=== PATIENT | female | born 1935 | race Caucasian/White ===

== ENCOUNTER → 2016-08-05 | Outpatient (CLI) | payer BC, OTHER ==
[~2016-08-05] MED LIST: ASPI400T11 PEG; ATOR10TA82 PO; CEPH-571 PO; CETI10TA84 PO; CHOL100010 PO; CHOLTAB5 PO; CRAN1TAB9 PO; LANS15CA6 PO; LEVO100T PO; LEVO75TA5 PO; LIFI5DRO OP; MELO15TA4 PO; METH-1305 PO; MULT-190 PO; MULT-506 PO; OMEGCAP2 PO; PYRI100T4 PO; [UNRECOGNIZED DRUG - OTHER] TOP
[2016-08-05 09:33] LABS: BASO % 0.3 %; BASO ABS # 0.02 K/uL (0-0.2); COMPLETE YES; EOS % 2.3 %; HEMATOCRIT 42.1 % (37-47); LYMPH % 25.5 %; LYMPH ABS # 1.79 K/uL (1.2-3.4); MEAN CORPUSCULAR HEMOGLOBIN 32.6 pg (25-34); MEAN CORPUSCULAR HGB CONC 34.7 g/dl (32-36); MEAN PLATELET VOLUME 9.4 fL (7.4-10.4); MONO % 6.5 %; NEUT % 65.4 %; PLATELET COUNT 232 K/uL (130-400); RED BLOOD COUNT 4.48 M/uL (4.2-5.4); WHITE BLOOD COUNT 7.03 K/uL (4.8-10.8)
[2016-08-05 10:03] LABS: ESTIMATED AVERAGE GLUCOSE 126 mg/dl; HA1C FLAG Normal (Normal)
[2016-08-05 10:04] LABS: ALT/SGPT 32 U/L (12-78); BLOOD UREA NITROGEN 12 mg/dl (7-18); BUN/CREATININE RATIO 14.4 (10-20); CALCIUM 9.2 mg/dl (8.5-10.1); CARBON DIOXIDE 32 mmol/L (21-32); CHLORIDE 101 mmol/L (98-107); CHOLESTEROL 201 mg/dl (0-200); GLUCOSE 94 mg/dl (70-99); POTASSIUM 3.9 mmol/L (3.5-5.1); SODIUM 138 mmol/L (136-145); URIC ACID 4.5 mg/dl (2.6-7.2)
[2016-08-05 10:12] LABS: ALB/GLOB RATIO 1.3 (0.9-2); ALKALINE PHOSPHATASE 79 U/L (45-117); AST/SGOT 20 U/L (15-37); CHOLESTEROL/HDL RATIO 2.5; HDL CHOLESTEROL 80 mg/dl; LDL CHOLESTEROL CALCULATED 95 mg/dl; PHOSPHORUS 3.4 mg/dl (2.5-4.9); TRIGLYCERIDES 130 mg/dl (0-150); VERY LOW DENSITY LIPOPROT CALC 26 mg/dl
[2016-08-05 10:15] LABS: URINE APPEARANCE CLEAR (CLEAR); URINE BILIRUBIN NEG (NEG); URINE COLOR YELLOW; URINE NITRITE NEG (NEG); URINE SPECIFIC GRAVITY 1.016 (1.000-1.030); UROBILINOGEN NEG (NEG)
[2016-08-05 10:52] LABS: MANUAL MICROSCOPIC REQUIRED? NO; REVIEW REQ? NO
[2016-08-06 10:34] LABS: C-REACTIVE PROT HIGHSEN 0.3 MG/L
--- NOTE | 2016-08-12 07:04 | CODING QUERY MEDICAL NECESSITY ---
CQSUPPORTING DIAGNOSIS NEEDED A supporting diagnosis is required for the test/procedure performed on this patient in order for us to be reimbursed by the patient's insurance. Please provide a supporting diagnosis for the following test/procedure listed below next to the test name along with your signature. *If there is no additional diagnosis for this patient that would support the following test/procedure please document that below next to the test/procedure. Test(s)/Procedure(s) that require a supporting diagnosis: DOS 08/05/16 C-REACTIVE PROTEIN HIGH SENSITIVITY TESTING Provider Signature: Date: Thank you Merle Quintero Health Information Management Once completed, please kindly fax back to [phone] For questions please call [phone]
== END | disposition home or self-care (01) ==
LOC: C.LAB 08:45
PROVIDERS: ATTEND Family Medicine
DX: R73.09 Other abnormal glucose (principal); E55.9 Vitamin D deficiency, unspecified; D51.9 Vitamin B12 deficiency anemia, unspecified; N39.0 Urinary tract infection, site not specified; E78.00 Pure hypercholesterolemia, unspecified

== ENCOUNTER → 2016-08-12 | Outpatient (CLI) | payer BC, OTHER | END | disposition home or self-care (01) | LOC: C.PATHSPEC 10:24 | PROVIDERS: ATTEND Urology | DX: N30.01 Acute cystitis with hematuria (principal) ==

== ENCOUNTER 2016-10-05 15:09 | Emergency (ER) | payer BC, OTHER ==
[~2016-10-05] VITALS: Ht 165.1 cm; Wt 67.7 kg
[~2016-10-05 15:09] MED LIST changes: -CEPH-571 PO; -CETI10TA84 PO; -CHOLTAB5 PO; -LANS15CA6 PO; -LEVO100T PO; -LIFI5DRO OP; -METH-1305 PO; -MULT-190 PO
[2016-10-05 15:12] VITALS: TEMP 36.4; Ht 165.1 cm; Wt 67.7 kg
[2016-10-05] MEDS ORDERED: METH-1305 PO (15:24)
[2016-10-05] MEDS ORDERED: CETI10TA84 PO (15:24)
[2016-10-05] MEDS ORDERED: MULT-190 PO (15:24)
[2016-10-05] MEDS ORDERED: LIFI5DRO OP (15:24)
[2016-10-05] MEDS ORDERED: LEVO100T PO (15:24)
[2016-10-05] MEDS ORDERED: LANS15CA6 PO (15:24)
[2016-10-05] MEDS ORDERED: CHOLTAB5 PO (15:24)
--- NOTE | 2016-10-05 15:51 | DIAGNOSTIC IMAGING REPORT ---
RIGHT FOOT MIN 3 VIEWS ROUTINE CLINICAL HISTORY: Right foot pain COMPARISON: None. DISCUSSION: No acute fractures are visualized. There is a hallux valgus deformity. There are mild degenerative changes at the level of the first metatarsal phalangeal joint. There is no erosive disease. IMPRESSION: 1. No acute fractures 2. Degenerative changes at the level of the first metatarsal phalangeal joint. Hallux valgus deformity. Electronically signed by: Alexi Hamilton M.D. 10/05/2016 3:50 PM Dictated Date/Time: 10/05/2016 3:49 PM
--- NOTE | 2016-10-05 15:54 | EMERGENCY ROOM VISIT NOTE ---
ED Visit Note First contact with patient: 15:15 CHIEF COMPLAINT: Right foot pain HISTORY of present illness: This 81-year-old female presents the ER with chief complaint of increasing pain on the bottom of her right foot. She states that the base of her toes. 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 She states that it feels like there is "a bone sticking out". REVIEW OF SYSTEMS: 6 system review was performed and was negative unless stated otherwise in history of present illness. PMH: The patient is healthy; recurrent UTIs SOCIAL HISTORY: Patient lives alone. The patient denies any tobacco use but admits to occasional alcohol use. PHYSICAL EXAM: Vital Signs: Were reviewed blood pressure was 176/89 Reviewed Nurse's notes. GENERAL: 81-year-old white female appears younger than stated age. MENTAL Status: Alert, oriented and choerent, not in acute distress. RIGHT Foot: No gross bony deformity noted. No erythema or edema noted. The patient is tender to palpation over the plantar surface of the distal metatarsal region. Remainder of foot is nontender. Patient is able to move her toes without difficulty. Sensation is intact. The patient states she has been appointment with a golf coach at the end of this month. EMERGENCY DEPARTMENT COURSE: The patient was evaluated. The patient was informed that her blood pressure is 176/89 and that it is recommended that she gets a blood pressure check at her family physician in 2 days. The patient verbalized understanding. X-ray of the right foot was ordered and interpreted by the radiologist. DIAGNOSTICS:LEFT RIBS UNILATERAL WITH PA CHEST CLINICAL HISTORY: Left rib injury with pain. COMPARISON STUDY: None. FINDINGS: No pleural effusions. No pneumothorax. The lungs are hyperexpanded with apical predominant emphysematous changes. The heart is normal in size. Biapical reticulonodular thickening is likely chronic. Slightly displaced left lateral fourth through seventh rib fractures. IMPRESSION: Left lateral fourth through seventh rib fractures. No pneumothorax. Electronically signed by: Mariusz Ch M.D. 10/05/2016 1:32 PM The patient was informed of the findings. The patient was independently evaluated by Dr. Sims who agrees with treatment plan. The patient was discharged home in stable condition. TREATMENT: Tylenol as needed for pain. Recommend an insert for your shoes for more cushioning. Keep scheduled appointment with your foot doctor at the end of this month. Follow-up with your family physician in 2 days for blood pressure recheck. DIAGNOSIS: Right foot pain Problem List Medical Problems: (1) Hypothyroidism Status: Chronic Current/Historical Medications Scheduled Atorvastatin (Lipitor), 10 MG PO DAILY Cetirizine (Zyrtec), 10 MG PO DAILY Cholecalciferol (D-1000), 1,000 UNIT PO DAILY Cranberry (Vaccinium Macrocarp (Cranberry), 300 MG PO DAILY Lansoprazole (Prevacid), 15 MG PO DAILY Levothyroxine Sodium (Synthroid), 100 MCG PO DAILY Lifitegrast (Xiidra), 2 DROPS OP BID Methenamine Hippurate (Methenamine Hippurate), 1 GM PO DAILY Multivitamin (Multivitamin), 1 TAB PO DAILY Ocuvite Preservision (Ocuvite Preservision), 1 TAB PO DAILY [place]-3 Fatty Acids (Fish Oil), 1,200 MG PO DAILY Pyridoxine Hcl (Vitamin B6 100 Mg), 100 MG PO DAILY Scheduled PRN Aspirin-Caffeine (Anacin 400-32 mg), 1 TAB PEG UD PRN for Pain Allergies Coded Allergies: Lactose Intolerance (GI) (Verified Allergy, Unknown, GI SYMPTOMS, 10/05/16) Meperidine (Verified Allergy, Unknown, unk, 10/05/16) Naproxen (Unverified Allergy, Unknown, HOT FLASHES, 10/05/16) Sulfa Antibiotics (Verified Allergy, Unknown, unk, 10/05/16) Vital Signs Date Time Temp Pulse Resp B/P (MAP) Pulse Ox O2 Delivery O2 Flow Rate FiO2 10/05/16 15:12 36.4 70 18 176/89 98 Room Air Departure Information Referrals No Doctor, Assigned (PCP) Patient Instructions [facility] [place]
--- NOTE | 2016-10-05 16:01 | EMERGENCY ROOM VISIT NOTE ---
ED Visit Note First contact with patient: 15:15 This Patient was discussed with the physician telecom assistant, ADRIANE Desir. The pertinent historical and physical exam findings were confirmed. I agree with the studies ordered and with the interpretations of these studies. I agree with the disposition and care plan.
[2016-10-05 16:07] VITALS: BP 161/81; PULSE 59; O2SAT 95
== END 2016-10-05 16:08 | disposition home or self-care (01) ==
LOC: C.EDB 15:11 → C.EDD 16:08
DX: M79.671 Pain in right foot (principal); E03.9 Hypothyroidism, unspecified; Z87.440 Personal history of urinary (tract) infections; Z79.899 Other long term (current) drug therapy

== ENCOUNTER → 2016-10-08 | Outpatient (CLI) | payer BC, OTHER ==
[~2016-10-08] MED LIST changes: +CEPH-571 PO; +CETI10TA84 PO; -CHOL100010 PO; +CHOLTAB5 PO; +LANS15CA6 PO; +LEVO100T PO; -LEVO75TA5 PO; +LIFI5DRO OP; -MELO15TA4 PO; +METH-1305 PO; +MULT-190 PO; -[UNRECOGNIZED DRUG - OTHER] TOP
[2016-10-08 10:25] LABS: THYROID STIMULATING HORMONE 0.824 uIu/ml (0.300-4.500)
== END | disposition home or self-care (01) ==
LOC: C.LAB 08:57
PROVIDERS: ATTEND Family Medicine
DX: E03.9 Hypothyroidism, unspecified (principal)

== ENCOUNTER → 2016-10-16 | Outpatient (CLI) | payer BC, OTHER ==
--- NOTE | 2016-10-16 12:33 | DIAGNOSTIC IMAGING REPORT ---
ULTRASOUND VENOUS DOPP LOWER EXT UNILAT CLINICAL HISTORY: Right lower leg swelling. Pain. COMPARISON STUDY: No previous studies for comparison. FINDINGS: Real-time and color flow Doppler imaging were performed. Flow was seen within the femoral, popliteal and calf veins with no intraluminal thrombus demonstrated. The saphenous vein is patent. IMPRESSION: No evidence of right lower extremity DVT. Electronically signed by: Alexi Hamilton M.D. 10/16/2016 12:32 PM Dictated Date/Time: 10/16/2016 12:32 PM
== END | disposition home or self-care (01) ==
LOC: C.ULTR 12:06
PROVIDERS: ATTEND Family Medicine
DX: M79.604 Pain in right leg (principal); M79.89 Other specified soft tissue disorders

== ENCOUNTER 2017-01-08 23:16 | Emergency (ER) | payer BC, OTHER ==
[~2017-01-08] VITALS: Ht 162.6 cm; Wt 65.7 kg
[~2017-01-08 23:16] MED LIST changes: -ATOR10TA82 PO; +ATOR10TA88 PO; -CEPH-571 PO; -METH-1305 PO; +METH1TAB5 PO
[2017-01-08 23:21] VITALS: Ht 162.6 cm; Wt 65.7 kg
--- NOTE | 2017-01-08 23:41 | EMERGENCY ROOM VISIT NOTE ---
History Report prepared by Ricardo: Annita Barker Under the Supervision of: Jed OrlandoO. First contact with patient: 23:26 Chief Complaint: URINARY SYMPTOMS Stated Complaint: UTI - BLOOD IN URINE Nursing Triage Summary: UTI symptoms since 5pm. took Azo, pyridium, cipro. History of Present Illness The patient is a 81 year old female who presents to the Emergency Room with complaints of urinary symptoms beginning today. The patient reports that she has UTI symptoms and that there was blood in her urine today. The patient states that she took Azo. She reports that she has had blood in her urine with previous UTI's. She also complains of lower abdominal pressure. Pt denies headache, change in vision, fevers, chest pain, shortness of breath, nausea, vomiting, diarrhea, and melena, no back pain. No prior hx of pyelonephritis, renal stone, or other renal disease. Source of History: patient Onset: today Position: other (global) Quality: other (urinary symptoms ) Associated Symptoms: + abdominal pain (lower abdominal pressure), + urinary symptoms (blood in urine), No fevers, No headache, No chest pain, No SOB, No nausea, No vomiting, No melena, No diarrhea Review of Systems See HPI for pertinent positives & negatives. A total of 10 systems reviewed and were otherwise negative. Past Medical & Surgical Medical Problems: (1) Hypothyroidism Family History Cancer Diabetes mellitus Heart disease Lung disease Social History Smoking Status: Never Smoker Alcohol Use: occasionally Drug Use: none Marital Status: Housing Status: lives with significant other Occupation Status: retired Current/Historical Medications Scheduled Atorvastatin (Lipitor), 10 MG PO DAILY Cephalexin (Keflex), 1 CAP PO BID Cetirizine (Zyrtec), 10 MG PO DAILY Cholecalciferol (D-1000), 1,000 UNIT PO DAILY Cranberry (Vaccinium Macrocarp (Cranberry), 300 MG PO DAILY Lansoprazole (Prevacid), 15 MG PO DAILY Levothyroxine Sodium (Synthroid), 100 MCG PO DAILY Lifitegrast (Xiidra), 2 DROPS OP BID Methenamine Hippurate (Methenamine Hippurate), 1 GM PO DAILY Multivitamin (Multivitamin), 1 TAB PO DAILY Ocuvite Preservision (Ocuvite Preservision), 1 TAB PO DAILY [place]-3 Fatty Acids (Fish Oil), 1,200 MG PO DAILY Pyridoxine Hcl (Vitamin B6 100 Mg), 100 MG PO DAILY Scheduled PRN Aspirin-Caffeine (Anacin 400-32 mg), 1 TAB PEG UD PRN for Pain Allergies Coded Allergies: Lactose Intolerance (GI) (Verified Allergy, Unknown, GI SYMPTOMS, 10/05/16) Meperidine (Verified Allergy, Unknown, unk, 10/05/16) Naproxen (Unverified Allergy, Unknown, HOT FLASHES, 10/05/16) Sulfa Antibiotics (Verified Allergy, Unknown, unk, 10/05/16) Physical Exam Vital Signs Date Time Temp Pulse Resp B/P (MAP) Pulse Ox O2 Delivery O2 Flow Rate FiO2 01/09/17 00:55 76 18 146/88 95 Room Air 01/08/17 23:21 36.3 78 20 95 Room Air Physical Exam GENERAL: alert, well appearing, well nourished, no distress, non-toxic EYE EXAM: normal conjunctiva, PERRL and EOM's grossly intact OROPHARYNX: no exudate, no erythema, lips, buccal mucosa, and tongue normal and mucous membranes are moist NECK: supple, no nuchal rigidity, no adenopathy, non-tender LUNGS: Clear to auscultation. Normal chest wall mechanics HEART: no murmurs, S1 normal and S2 normal ABDOMEN: abdomen soft, non-tender, normo-active bowel sounds, no masses, no rebound or guarding. BACK: Back is symmetrical on inspection and there is no deformity, no midline tenderness, no CVA tenderness. SKIN: no rashes and no bruising UPPER EXTREMITIES: upper extremities are grossly normal. LOWER EXTREMITIES: No pitting edema. NEURO EXAM: Normal sensorium, cranial nerves II-XII [grossly] intact, normal speech, no [gross] weakness of arms, no [gross] weakness of legs. [No drift. Finger to nose intact. Gross sensation intact.] Medical Decision & Procedures Laboratory Results Test 01/08/17 23:30 Urine Color ORANGE Urine Appearance SLIGHTLY CLOUDY (CLEAR) Urine pH (4.5-7.5) Urine Specific [place] 1.013 (1.000-1.030) Urine Protein POS (NEG) Urine Glucose (UA) (NEG) Urine Ketones (NEG) Urine Occult Blood (NEG) Urine Nitrite (NEG) Urine Bilirubin (NEG) Urine Urobilinogen (NEG) Urine Leukocyte Esterase (NEG) Urine RBC >30 /hpf (0-4) Urine WBC >30 /hpf (0-5) Urine Epithelial Cells 0-5 /lpf (0-5) Urine Bacteria NEG (NEG) Laboratory results per my review. Medications Administered Medications (Trade) Dose Ordered Sig/Cy Route Start Time Stop Time Status Last Admin Dose Admin Cephalexin Monohydrate (Keflex Cap) 500 mg NOW ONCE PO 01/09/17 00:30 01/09/17 00:31 DC 01/09/17 01:00 500 MG Phenazopyridine HCl (Phenazopyridine HCl 200MG Home Pack) 1 homepack UD ONCE PO 01/09/17 01:15 01/09/17 01:16 DC 01/09/17 01:00 1 HOMEPACK Phenazopyridine HCl (Pyridium Tab) 100 mg NOW STAT PO 01/09/17 01:01 01/09/17 01:02 DC 01/09/17 01:00 100 MG ED Course 2320: The patient was evaluated in room B5. A complete history and physical exam was performed. 0015: I checked on the patient and she is doing better. 0030: Ordered Cephalexin Monohydrate 500 mg PO. 0040: Upon reevaluation, the patient is feeling better. I discussed the findings and the treatment plan with the patient. She verbalizes agreement and understanding. She was discharged home. Medical Decision The patient is a 81 year old female who presents to the ED with complaints of urinary symptoms. Differentials include a UTI, kidney stone, pyelonephritis, and acute renal failure. Pt well appearing here, VS stable. Sx consistent with UTI, PE not suggestive of pyelonephritis, doubt bacteremia/sepsis, ARF, hx not consistent with stone. Reviewed prior cultures and allergies. Discussed f/u, culture sent, sx to watch /return for, she verbalized understanding and was agreeable with plan. Medication Reconcilliation Current Medication List: was personally reviewed by me Blood Pressure Screening Patient's blood pressure: Normal blood pressure Impression Primary Impression: UTI (urinary tract infection) Additional Impressions: Dysuria Hematuria Scribe Attestation The scribe's documentation has been prepared under my direction and personally reviewed by me in its entirety. I confirm that the note above accurately reflects all work, treatment, procedures, and medical decision making performed by me. Departure Information Dispostion Home / Self-Care Prescriptions Cephalexin (KEFLEX) 500 Mg Cap 1 CAP PO BID for 7 Days, #14 CAP Prov: Virginia Reyes, 01/09/17 Referrals Mp Block M.D. (PCP) Forms HOME CARE DOCUMENTATION FORM, IMPORTANT VISIT INFORMATION Patient Instructions My [facility] Additional Instructions Please take the antibiotics and drink plenty of water. If you have any worsening pain with urination, increased abdominal pain or back pain, develop fevers/chills, nausea/vomiting, dizziness, weakness, or you have any other new or concerning symptoms, please return to the emergency room. Problem Qualifiers Primary Impression: UTI (urinary tract infection) Urinary tract infection type: acute cystitis Hematuria presence: with hematuria Qualified Codes: N30.01 - Acute cystitis with hematuria Additional Impressions: Hematuria Hematuria type: gross Qualified Codes: R31.0 - Gross hematuria
[2017-01-08 23:55] LABS: MANUAL MICROSCOPIC REQUIRED? YES; REVIEW REQ? NO
[2017-01-08 23:56] LABS: SULFASALICYLIC ACID NEG (NEG); URINE APPEARANCE SLIGHTLY CLOUDY (CLEAR); URINE COLOR ORANGE; URINE SPECIFIC GRAVITY 1.013 (1.000-1.030)
[2017-01-09 00:02] LABS: URINE BACTERIA NEG (NEG); URINE RBC >30 /hpf (0-4); URINE WBC >30 /hpf (0-5)
[2017-01-09 00:03] LABS: ZZUR CULT IF INDIC CLEAN CATCH YES
[2017-01-09] MEDS ORDERED: CEPH-571 PO (00:22)
[2017-01-09] MEDS ORDERED: CEPHALEXIN MONOHYDRATE 250 MG CAP PO ONE (00:30)
[2017-01-09 00:55] VITALS: BP 146/88; PULSE 76; O2SAT 95
[2017-01-09] MEDS ORDERED: PHENAZOPYRIDINE HCL 100 MG TAB PO STA (01:01)
[2017-01-09] MEDS ORDERED: PHENAZOPYRIDINE HCL 200 MG TAB PO ONE (01:03)
[2017-01-09] MEDS ORDERED: PHENAZOPYRIDINE HOME PACK 200 MG VIAL PO ONE ×2 (01:03→01:15)
== END 2017-01-09 01:05 | disposition home or self-care (01) ==
LOC: C.EDB 23:18
DX: N30.01 Acute cystitis with hematuria (principal); R30.0 Dysuria; R31.0 Gross hematuria; E03.9 Hypothyroidism, unspecified; Z83.3 Family history of diabetes mellitus; Z82.49 Family history of ischemic heart disease and other diseases of the circulatory system

== ENCOUNTER → 2017-01-19 | Outpatient (CLI) | payer BC, OTHER | END | disposition home or self-care (01) | LOC: C.LABSPEC 16:54 | PROVIDERS: ATTEND Urology | DX: N39.0 Urinary tract infection, site not specified (principal) ==

== ENCOUNTER → 2017-02-02 | Outpatient (CLI) | payer BC, OTHER ==
[2017-02-02 09:35] LABS: BASO % 0.6 %; BASO ABS # 0.03 K/uL (0-0.2); COMPLETE YES; EOS % 2.4 %; HEMATOCRIT 41.3 % (37-47); LYMPH % 26.7 %; LYMPH ABS # 1.43 K/uL (1.2-3.4); MEAN CELL VOLUME 94.9 fL (80-100); MEAN CORPUSCULAR HEMOGLOBIN 32.6 pg (25-34); MEAN CORPUSCULAR HGB CONC 34.4 g/dl (32-36); MEAN PLATELET VOLUME 9.2 fL (7.4-10.4); MONO % 11.2 %; NEUT % 59.1 %; PLATELET COUNT 249 K/uL (130-400); RED BLOOD COUNT 4.35 M/uL (4.2-5.4); WHITE BLOOD COUNT 5.36 K/uL (4.8-10.8)
[2017-02-02 09:59] LABS: ALT/SGPT 26 U/L (12-78); AST/SGOT 23 U/L (15-37); BLOOD UREA NITROGEN 16 mg/dl (7-18); BUN/CREATININE RATIO 19.1 (10-20); CALCIUM 9.1 mg/dl (8.5-10.1); CARBON DIOXIDE 30 mmol/L (21-32); CHLORIDE 105 mmol/L (98-107); CHOLESTEROL 209 mg/dl (0-200); CREATININE 0.82 mg/dl (0.60-1.20); GLUCOSE 97 mg/dl (70-99); POTASSIUM 4.3 mmol/L (3.5-5.1); SODIUM 138 mmol/L (136-145); TRIGLYCERIDES 80 mg/dl (0-150); URIC ACID 4.9 mg/dl (2.6-7.2); VERY LOW DENSITY LIPOPROT CALC 16 mg/dl
[2017-02-02 10:17] LABS: ALB/GLOB RATIO 1.4 (0.9-2); ALKALINE PHOSPHATASE 75 U/L (45-117); CHOLESTEROL/HDL RATIO 2.7; HDL CHOLESTEROL 77 mg/dl; LDL CHOLESTEROL CALCULATED 116 mg/dl; THYROID STIMULATING HORMONE 0.235 uIu/ml (0.300-4.500); TOTAL IRON BINDING CAPACITY 317 mcg/dl (250-450)
[2017-02-02 11:12] LABS: ESTIMATED AVERAGE GLUCOSE 126 mg/dl; HA1C FLAG Normal (Normal)
== END | disposition home or self-care (01) ==
LOC: C.LAB 08:24
PROVIDERS: ATTEND Family Medicine
DX: R73.09 Other abnormal glucose (principal); E55.9 Vitamin D deficiency, unspecified; D51.9 Vitamin B12 deficiency anemia, unspecified; E78.9 Disorder of lipoprotein metabolism, unspecified; R53.83 Other fatigue

== ENCOUNTER → 2017-08-02 | Outpatient (CLI) | payer BC, OTHER ==
[~2017-08-02] MED LIST changes: +ATOR10TA82 PO; -ATOR10TA88 PO; +METH-1305 PO; -METH1TAB5 PO
[2017-08-02 09:40] LABS: BASO % 0.6 %; BASO ABS # 0.03 K/uL (0-0.2); EOS % 2.8 %; EOS ABS # 0.14 K/uL (0-0.5); HEMATOCRIT 41.9 % (37-47); HEMOGLOBIN 14.2 g/dL (12.0-16.0); LYMPH % 28.7 %; LYMPH ABS # 1.44 K/uL (1.2-3.4); MEAN CELL VOLUME 95.2 fL (80-100); MEAN CORPUSCULAR HEMOGLOBIN 32.3 pg (25-34); MEAN CORPUSCULAR HGB CONC 33.9 g/dl (32-36); MEAN PLATELET VOLUME 9.4 fL (7.4-10.4); MONO % 9.8 %; MONO ABS # 0.49 K/uL (0.11-0.59); NEUT % 58.1 %; NEUT ABS # 2.92 K/uL (1.4-6.5); PLATELET COUNT 270 K/uL (130-400); RED CELL DISTRIBUTION WIDTH CV 12.9 % (11.5-14.5); WHITE BLOOD COUNT 5.02 K/uL (4.8-10.8)
[2017-08-02 09:50] LABS: HEMOGLOBIN A1C 5.8 % (4.5-5.6)
[2017-08-02 09:52] LABS: ALBUMIN 3.7 gm/dl (3.4-5.0); ALT/SGPT 33 U/L (12-78); AST/SGOT 32 U/L (15-37); BLOOD UREA NITROGEN 15 mg/dl (7-18); CALCIUM 9.1 mg/dl (8.5-10.1); CARBON DIOXIDE 30 mmol/L (21-32); CHOLESTEROL 183 mg/dl (0-200); CREATININE 0.86 mg/dl (0.60-1.20); GLUCOSE 96 mg/dl (70-99); SODIUM 137 mmol/L (136-145)
[2017-08-02 10:02] LABS: ALKALINE PHOSPHATASE 67 U/L (45-117); LDL CHOLESTEROL CALCULATED 96 mg/dl; TOTAL PROTEIN 6.6 gm/dl (6.4-8.2); TRANSFERRIN 250 mg/dl (200-360)
== END | disposition home or self-care (01) ==
LOC: C.LAB 08:06
PROVIDERS: ATTEND Family Medicine
DX: R73.09 Other abnormal glucose (principal); E55.9 Vitamin D deficiency, unspecified; E78.9 Disorder of lipoprotein metabolism, unspecified; R53.83 Other fatigue; D51.9 Vitamin B12 deficiency anemia, unspecified

== ENCOUNTER → 2017-12-06 | Outpatient (CLI) | payer BC, OTHER ==
[~2017-12-06] MED LIST changes: +CEPH500C PO
== END | disposition home or self-care (01) ==
LOC: C.LAB 11:45
PROVIDERS: ATTEND Nurse Practitioner Family
DX: N39.0 Urinary tract infection, site not specified (principal)

== ENCOUNTER → 2017-12-07 | Outpatient (CLI) | payer BC, OTHER | END | disposition home or self-care (01) | LOC: C.MAMM 12:57 | PROVIDERS: ATTEND Family Medicine | DX: M85.88 Other specified disorders of bone density and structure, other site (principal) ==

== ENCOUNTER 2017-12-15 20:41 | Emergency (ER) | payer BC, OTHER ==
[~2017-12-15] VITALS: Ht 163.8 cm; Wt 66.8 kg
[~2017-12-15 20:41] MED LIST changes: -CEPH500C PO
[2017-12-15 20:44] VITALS: BP 156/76; TEMP 36.4; Ht 163.8 cm; Wt 66.8 kg
[2017-12-15] MEDS ORDERED: CEPH500C PO (22:06)
[2017-12-15] MEDS ORDERED: CEPHALEXIN 500MG HOME PACK 1 EA BTL PO ONE (22:15)
[2017-12-15] MEDS ORDERED: CEPHALEXIN MONOHYDRATE 250 MG CAP PO ONE (22:15)
--- NOTE | 2017-12-15 22:18 | EMERGENCY ROOM VISIT NOTE ---
History Report prepared by Ricardo: Margareth Paiz Under the Supervision of: Dr. Chintan Abreu M.D. First contact with patient: 21:47 Chief Complaint: URINARY SYMPTOMS Stated Complaint: BLOOD IN URINE Nursing Triage Summary: Patient complains of blood in urine, burning with urination, and cramping. History of Present Illness The patient is a 82 year old female who presents to the Emergency Room with complaints of persistent blood in urine and painful urination beginning 2.5 hours ago. She notes she has urinated 5 times since then, and is experiencing severe pain and blood each time. The patient notes a long history of UTIs. She states she had a UTI 5 weeks ago, and 2 weeks ago had similar symptoms but a urinalysis that was negative for a UTI. The patient notes some suprapubic discomfort beginning 3 days ago, which she describes as cramping, but denies pain in her back or any vaginal bleeding. She sees Dr. Chanel as her urologist and last saw him 10 days ago. The patient reports she had an US recently that did not reveal anything unusual. Source of History: patient Onset: 2.5 hours ago Position: pelvis Quality: other (blood in urine, painful urination) Timing: other (persistent) Associated Symptoms: + abdominal pain (suprapubic cramping), No back pain Note: Denies: vaginal bleeding. Review of Systems See HPI for pertinent positives and negatives. A total of ten systems were reviewed and were otherwise negative. Past Medical & Surgical Medical Problems: (1) Hypothyroidism Family History Cancer Diabetes mellitus Heart disease Lung disease Social History Smoking Status: Never Smoker Alcohol Use: occasionally Drug Use: none Marital Status: Housing Status: lives with significant other Occupation Status: retired Current/Historical Medications Scheduled Atorvastatin (Lipitor), 10 MG PO DAILY Cephalexin Monohydrate (Keflex), 500 MG PO QID Cetirizine (Zyrtec), 10 MG PO DAILY Cholecalciferol (D-1000), 1,000 UNIT PO DAILY Cranberry (Vaccinium Macrocarp (Cranberry), 300 MG PO DAILY Lansoprazole (Prevacid), 15 MG PO DAILY Levothyroxine Sodium (Synthroid), 100 MCG PO DAILY Lifitegrast (Xiidra), 2 DROPS OP BID Methenamine Hippurate (Methenamine Hippurate), 1 GM PO DAILY Multivitamin (Multivitamin), 1 TAB PO DAILY Ocuvite Preservision (Ocuvite Preservision), 1 TAB PO DAILY [place]-3 Fatty Acids (Fish Oil), 1,200 MG PO DAILY Pyridoxine Hcl (Vitamin B6 100 Mg), 100 MG PO DAILY Scheduled PRN Aspirin-Caffeine (Anacin 400-32 mg), 1 TAB PEG UD PRN for Pain Allergies Coded Allergies: Lactose Intolerance (GI) (Verified Allergy, Unknown, GI SYMPTOMS, 10/05/16) Meperidine (Verified Allergy, Unknown, unk, 10/05/16) Naproxen (Unverified Allergy, Unknown, HOT FLASHES, 10/05/16) Sulfa Antibiotics (Verified Allergy, Unknown, unk, 10/05/16) Physical Exam Vital Signs Date Time Temp Pulse Resp B/P (MAP) Pulse Ox O2 Delivery O2 Flow Rate FiO2 12/15/17 22:24 72 100 12/15/17 20:44 36.4 74 18 156/76 94 Room Air Physical Exam GENERAL: Awake, alert, well-appearing, in no distress HENT: Normocephalic, atraumatic. Oropharynx unremarkable. EYES: Normal conjunctiva. Sclera non-icteric. NECK: Supple. No nuchal rigidity. RESPIRATORY: Clear to auscultation. No wheezes. Normal respiratory effort. CARDIAC: Normal rate. Normal rhythm. Extremities warm and well perfused. GI: Soft, non-distended. Slight suprapubic tenderness. No rebound or guarding. No masses. RECTAL: Deferred. MUSCULOSKELETAL: Atraumatic. Chest examination reveals no tenderness. There is no CVA tenderness to palpation. LOWER EXTREMITIES: Calves are equal size bilaterally and non-tender. No edema NEURO: Normal sensorium. No sensory or motor deficits noted. No facial droop. SKIN: Warm and dry. No rash or jaundice noted. Medical Decision & Procedures Laboratory Results Test 12/15/17 20:49 Urine Color RED Urine Appearance CLOUDY (CLEAR) Urine pH 5.5 (4.5-7.5) Urine Specific [employer] 1.009 (1.000-1.030) Urine Protein 2+ (NEG) Urine Glucose (UA) NEG (NEG) Urine Ketones NEG (NEG) Urine Occult Blood 3+ (NEG) Urine Nitrite NEG (NEG) Urine Bilirubin NEG (NEG) Urine Urobilinogen NEG (NEG) Urine Leukocyte Esterase LARGE (NEG) Urine WBC (Auto) >30 /hpf (0-5) Urine RBC (Auto) >30 /hpf (0-4) Urine Hyaline Casts (Auto) 0 /lpf (0-5) Urine Epithelial Cells (Auto) 0-5 /lpf (0-5) Urine Bacteria (Auto) NEG (NEG) Urine Pathogenic Casts /lpf (0) Urine Yeast (Auto) BUDDING (NONE PRSENT) Laboratory results reviewed by me Medications Administered Medications (Trade) Dose Ordered Sig/Cy Route Start Time Stop Time Status Last Admin Dose Admin Cephalexin Monohydrate (Keflex 500MG Home Pack) 1 homepack NOW ONCE PO 12/15/17 22:15 12/15/17 22:16 DC 12/15/17 22:15 1 HOMEPACK Cephalexin Monohydrate (Keflex Cap) 500 mg NOW ONCE PO 12/15/17 22:15 12/15/17 22:16 DC 12/15/17 22:20 500 MG ED Course 215: The patient was evaluated in room C1B. A complete history and physical exam was performed. Discussed results and discharge instructions: she verbalized understanding and agreement. The patient is ready for discharge. 5: Ordered Keflex Cap 500 mg PO, Cephalexin Monohydrate 1 homepack PO. Medical Decision Differential Diagnosis: Etiologies such as UTI, kidney stone, paranephritis, gynecological bleeding, bladder mass, interstitial cystitis, among others were entertained. Hematuria and urinary symptoms this past evening. History of recurrent UTI. Several weeks ago partially treated but with negative urinalysis. No back pain. Doubt nephrolithiasis. Otherwise well-appearing. Denies any vaginal gynecological complaints. Treat this suspected UTI with Keflex. Previous cultures reviewed. Urine culture sent. Recommend she follow-up with her urologist given the urinalysis findings for further evaluation. Did discuss that this may not be a UTI and that urological follow-up is important. Doubt renal dysfunction. She understands discussed return criteria she is stable for discharge. Medication Reconcilliation Current Medication List: was personally reviewed by me Blood Pressure Screening Patient's blood pressure: Elevated blood pressure Blood pressure disposition: Referred to PCP Impression Primary Impression: UTI (urinary tract infection) Scribe Attestation The scribe's documentation has been prepared under my direction and personally reviewed by me in its entirety. I confirm that the note above accurately reflects all work, treatment, procedures, and medical decision making performed by me. Departure Information Dispostion Home / Self-Care Prescriptions Cephalexin Monohydrate (Keflex) 500 Mg Cap 500 MG PO QID for 7 Days, #28 CAP Prov: Chintan Abreu M.D. 12/15/17 Referrals No Doctor, Assigned (PCP) Forms HOME CARE DOCUMENTATION FORM, IMPORTANT VISIT INFORMATION Patient Instructions My [facility] Additional Instructions Please utilize the Keflex and [id number] Azo for your symptoms. Follow- up with urologist in the next 1-2 weeks. If you have new or concerning symptoms please return for reevaluation. Please maintain good hydration. Problem Qualifiers Primary Impression: UTI (urinary tract infection) Urinary tract infection type: acute cystitis Hematuria presence: with hematuria Qualified Codes: N30.01 - Acute cystitis with hematuria
[2017-12-15 22:24] VITALS: PULSE 72; O2SAT 100
== END 2017-12-15 22:24 | disposition home or self-care (01) ==
LOC: C.EDB 20:42 → C.EDC 22:24
DX: N30.01 Acute cystitis with hematuria (principal); E03.9 Hypothyroidism, unspecified; Z79.899 Other long term (current) drug therapy; Z88.2 Allergy status to sulfonamides; Z88.8 Allergy status to other drugs, medicaments and biological substances; Z91.011 Allergy to milk products